=== PATIENT | male | born 1980 | race African-American/Black ===

== ENCOUNTER 2020-01-08 09:10 | Emergency (ER) | payer SELFPAY ==
[~2020-01-08] VITALS: Ht 175.3 cm; Wt 80.0 kg
[2020-01-08] MEDS ORDERED: SENN-121 PO (09:46)
[2020-01-08] MEDS ORDERED: HYDR25SU18 RC (09:46)
--- NOTE | 2020-01-08 09:46 | PHYS DOC ---
Past Medical History Past Medical History: Other Additional Past Medical Histor: hemorrhoids, Anal fissure Past Surgical History: No Surgical History Smoking Status: Current Every Day Smoker Alcohol Use: Occasionally Drug Use: Marijuana Social History Narrative: Every day user Adult General Chief Complaint Chief Complaint: RECTAL BLEED HPI HPI Patient is a 39 year old male who presents to the ED with rectal bleeding. He states that after a normal bowel movement he noticed blood with wiping. He stated that this has happened in the past and he was diagnosed with an anal fissure. He also has had a history of hemorrhoids. He denies pain with defe cation. He denied recent constipation, diarrhea, nausea, vomiting, dizziness, or lightheadedness. He states that his bowel movements have been formed and denies hard stools. Review of Systems Review of Systems Constitutional: Denies fever, chills, or dizziness HENT: Denies nasal congestion or sore throat Respiratory: Denies cough or shortness of breath GI: Denies abdominal pain, nausea, or vomiting; reports hematochezia; denies rectal pain : Denies dysuria or hematuria Musculoskeletal: Denies back pain or joint pain Integument: Denies rash or skin lesions Neurologic: Denies headache, focal weakness or sensory changes Complete systems were reviewed and found to be within normal limits, except as documented in this note. Family History Family History No pertinent family history Allergies Allergies Allergies Coded Allergies Type Severity Reaction Last Updated Verified No Known Drug Allergies 01/08/20 No Physical Exam Physical Exam Constitutional: Well developed, well nourished, no acute distress, non-toxic appearance HENT: Normocephalic, atraumatic, oropharynx moist Eyes: EOMI, conjunctiva normal, no discharge Cardiovascular: Heart rate normal, regular rhythm Lungs & Thorax: Bilateral breath sounds clear to auscultation, no wheezing Abdomen: Soft, no tenderness, bowel sounds present, GI: External hemorrhoid noted on the rectal exam, digital rectal exam benign Skin: Warm, dry, no erythema, no rash Extremities: No tenderness, ROM intact, no edema Neurologic: Alert and oriented, no focal deficits noted Psychologic: Affect normal, judgment normal Current Patient Data Vital Signs Vital Signs Date Time Temp Pulse Resp B/P (MAP) Pulse Ox O2 Delivery O2 Flow Rate FiO2 01/08/20 09:50 98.4 65 16 157/105 (122) 98 Room Air 98.4 EKG EKG [] Radiology/Procedures Radiology/Procedures [] Course & Med Decision Making Course & Med Decision Making 39-year-old male presents to the ED with rectal bleeding. He states that after a normal bowel movement he noticed blood on toilet paper with wiping. He states that he does have history of an anal fissure and hemorrhoids. He has not seen a GI doctor for these symptoms. He denied any lightheadedness, dizziness, fever, or chills. He denied any pain with defecation and stated that he has had normal bowel movements without constipation or diarrhea. In the ED he was noted to have an external hemorrhoid on rectal exam. Digital rectal exam was benign. Patient was encouraged to follow-up with a GI doctor for reoccurring symptoms. Information was given to the patient at discharge. Patient was given a prescription for Anusol-HC suppository and Colace 2-in-1 tablets Patient stable for discharge with outpatient follow-up with PCP. Discussed findings and plan with patient, who acknowledges understanding and agreement. Dragon Disclaimer Dragon Disclaimer This electronic medical record was generated, in whole or in part, using a voice recognition dictation system. Departure Departure Impression: Primary Impression: Rectal bleeding Disposition: 01 HOME, SELF-CARE Condition: STABLE Referrals: NO PCP (PCP) LORRI VERDE MD Patient Instructions: Rectal Bleeding, [id number] Scripts Sennosides/Docusate Sodium (Colace 2-in-1 Tablet) 1 Each Tablet 1 TAB PO QHS for 30 Days, #30 TAB 0 Refills Prov: NIKHIL ZARCO DO 01/08/20 Hydrocortisone Acetate (ANUSOL-HC) 25 Mg Supp.rect 1 SUPP RC BID for 7 Days, #14 SUPP 0 Refills Prov: NIKHIL ZARCO DO 01/08/20 NIKHIL ZARCO DO Jan 08, 2020 09:46
[2020-01-08 09:50] VITALS: BP 157/105
== END 2020-01-08 09:52 | disposition home or self-care (01) ==
LOC: ER 09:10
DX: K92.1 Melena (principal); F12.90 Cannabis use, unspecified, uncomplicated; F17.200 Nicotine dependence, unspecified, uncomplicated; Z98.890 Other specified postprocedural states
CPT/HCPCS: 99282